=== PATIENT | female | born 1965 | race Caucasian/White ===

== ENCOUNTER 2018-06-27 19:08 | Emergency (ER) | payer MEDICAID ==
[~2018-06-27] VITALS: Ht 165.1 cm; Wt 98.6 kg
[2018-06-27 19:15] VITALS: BP 152/78
[2018-06-27] MEDS ORDERED: ALBUTEROL SULFATE 2.5 MG/3 ML NPPB ONE (19:30)
[2018-06-27] MEDS ORDERED: ALBUTEROL SULFATE 2.5 MG/3 ML ONE (19:37)
[2018-06-27 20:02] LABS: RAPID INFLUENZA A Negative (Negative); RAPID INFLUENZA B Negative (Negative)
== END 2018-06-27 20:17 | disposition home or self-care (01) ==
LOC: ED 20:15
DX: J06.9 Acute upper respiratory infection, unspecified (principal); F17.200 Nicotine dependence, unspecified, uncomplicated
CPT/HCPCS: 71046; 87400; 94640; 99284; J7613

== ENCOUNTER 2019-05-31 18:34 | Emergency (ER) | payer MEDICAID ==
[~2019-05-31] VITALS: Ht 165.1 cm; Wt 95.5 kg
[2019-05-31 19:36] LABS: BASOPHILS # (AUTO) 0.06 x10^3/uL (0-0.1); BASOPHILS % (AUTO) 1 % (0-1); EOSINOPHILS # (AUTO) 0.21 x10^3/uL (0-0.4); EOSINOPHILS % (AUTO) 2 % (1-7); LYMPHOCYTES # (AUTO) 3.05 x10^3/uL (1-3.4); LYMPHOCYTES % (AUTO) 27 % (22-44); MD NO; MEAN CORPUSCULAR HEMOGLOBIN 32.2 pg (27.0-34.8); MEAN CORPUSCULAR HGB CONC 33.6 g/dL (32.4-35.8); MEAN PLATELET VOLUME 8.1 fL (7.4-10.4); MONOCYTES % (AUTO) 6 % (2-9); NEUTROPHILS # (AUTO) 7.24 x10^3/uL (1.8-6.8); NEUTROPHILS % (AUTO) 64 % (42-75); PLATELET COUNT 281 x10^3/uL (130-400); RED BLOOD COUNT 4.36 x10^6/uL (3.82-5.3)
[2019-05-31 19:45] LABS: ALBUMIN 3.6 g/dL (3.4-5.0); ANION GAP 8 mmol/L (5-15); CALCIUM 9.3 mg/dL (8.5-10.1); CHLORIDE 103 mmol/L (98-107); CREATININE 0.83 mg/dL (0.55-1.02)
[2019-05-31 19:48] LABS: TROPONIN I < 0.015 ng/mL (0.000-0.045)
[2019-05-31] MEDS ORDERED: SODIUM CHLORIDE FLUSH 10ML SYR IVF ONE (20:00)
[2019-05-31] MEDS ORDERED: ONDANSETRON 2MG/ML, 2ML IVPush ONE (20:00)
[2019-05-31] MEDS ORDERED: ONDANSETRON 2MG/ML, 2ML ONE (20:12)
[2019-05-31] MEDS ORDERED: MORPHINE SULFATE 4 MG/ML, 1ML ONE ×2 (20:13→20:47)
[2019-05-31] MEDS: MORPHINE SULFATE 4 MG/ML, 1ML IVPush PRN ×2 (20:15→20:49)
--- NOTE | 2019-05-31 20:18 | NUR ---
PT RESTING ON GURNEY, IV SITE STARTED, MEDICATED PER MAR, MONITORS IN PLACE, SIDERAILS UP X2, CALL LIGHT WITHIN REACH
[2019-05-31] MEDS ORDERED: TRAZ-175 PO (20:43)
[2019-05-31] MEDS ORDERED: SERT100T PO (20:43)
--- NOTE | 2019-05-31 20:49 | NUR ---
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 PT MEDICATED PER MAR
--- NOTE | 2019-05-31 20:53 | NUR ---
PT TO ULTRASOUND
[2019-05-31 21:52] LABS: TROPONIN I < 0.015 ng/mL (0.000-0.045)
[2019-05-31 22:28] VITALS: BP 166/72
--- NOTE | 2019-05-31 22:28 | NUR ---
ERP AT PT'S BEDSIDE FOR RECHECK
== END 2019-05-31 22:52 | disposition home or self-care (01) ==
LOC: ED 22:00
DX: R07.89 Other chest pain (principal); K80.70 Calculus of gallbladder and bile duct without cholecystitis without obstruction; Z87.891 Personal history of nicotine dependence
CPT/HCPCS: 36415; 71045; 76700; 80048; 82040; 84484; 85025; 93005; 96361; 96374; 96375; 99285; J2270; J2405; 96376